=== PATIENT | female | born 1995 | race Caucasian/White ===

== ENCOUNTER 2025-05-27 05:38 | Inpatient (IN) | payer OTHER ==
[2025-05-27 06:08] VITALS: BMI 25.0
[2025-05-27] MEDS ORDERED: Methylergonovine 0.2 MG/ML VIAL IM PRN (06:26)
[2025-05-27] MEDS ORDERED: hydrALAZINE 20 MG/ML VIAL SLOW IVP PRN (06:26)
[2025-05-27] MEDS ORDERED: Lidocaine 1% (PF) 30 ML VIAL SC PRN (06:26)
[2025-05-27] MEDS ORDERED: Ondansetron PF 4 MG/2 ML Vial IVP PRN ×4 (06:26→22:00)
[2025-05-27] MEDS ORDERED: Tranexamic Acid 1,000 MG/10 ML VIAL IVP PRN (06:26)
[2025-05-27] MEDS ORDERED: Carboprost 250 MCG/ML AMP IM PRN (06:26)
[2025-05-27] MEDS ORDERED: Diphenoxylate HCl/Atropine Tablet PO PRN ×2 (06:26)
[2025-05-27] MEDS ORDERED: Oxytocin 30 units/NS 500 ML 500 ML IV SCH (06:30)
[2025-05-27 06:54] LABS: Hematocrit 37.9 % (34.9-44.5); Hemoglobin 12.8 g/dL (12.0-15.5); Mean Corpuscular Hemoglobin 30.8 pg (27.0-33.0); Mean Corpuscular Volume 91.3 fL (81.6-98.3); Platelet Count 294 10x3/uL (150-450); Red Blood Cell (RBC) Count 4.15 10x6/uL (3.90-5.03); White Blood Cell (WBC) Count 14.91 10x3/uL (3.5-10.5)
[2025-05-27] MEDS: fentaNYL/Ropivacaine Epidural 100 ML ONE (07:23)
[2025-05-27 07:40] LABS: Hep B Surf Ag - L&D Non-Reactive S/CO (NonReactive); Syphilis Antibody Index 0.07 S/CO (<1.00 Non-Reactive)
[2025-05-27] MEDS ORDERED: diphenhydrAMINE 50 MG/ML VIAL IVP PRN ×2 (07:46→09:07)
[2025-05-27] MEDS ORDERED: Acetaminophen 325 MG TAB PO PRN (07:46)
[2025-05-27] MEDS ORDERED: Communication Order-Pharmacy FS SCH ×2 (08:00→09:15)
[2025-05-27] MEDS ORDERED: fentaNYL 2 mcg/Ropivacaine 0.2% Epidural 100 ML CADD EPIDURAL SCH (08:00)
[2025-05-27] MEDS ORDERED: diphenhydrAMINE 50 MG/ML VIAL IM PRN (09:07)
[2025-05-27] MEDS ORDERED: diphenhydrAMINE 25 MG CAP PO PRN (09:07)
[2025-05-27] MEDS ORDERED: fentaNYL Citrate/PF 55 ML IV SCH (09:15)
[2025-05-27] MEDS ORDERED: Bupivacaine 0.25% HCL 30 ML VIAL ONE (13:00)
[2025-05-27] MEDS ORDERED: Bupivacaine HCl 0.5%/Epinephrine 1:200,000/PF 30 ml Vial ONE (13:00)
[2025-05-27] MEDS ORDERED: Lidocaine 2% MPF 10 ML AMP (For Epidural Use) ONE (13:00)
[2025-05-27] MEDS: Oxytocin 30 units/NS 500 ML 500 ML IV SCH (17:16)
[2025-05-27] MEDS: Ibuprofen 800 MG TAB PO PRN (19:27)
[2025-05-27] MEDS ORDERED: Bisacodyl 10 MG SUPP PR PRN (22:00)
[2025-05-27] MEDS ORDERED: Boostrix 0.5 ML (Tdap) VIAL (>/=7 yrs of age) IM SCH (22:00)
[2025-05-27] MEDS ORDERED: HYDROcodone/Acetaminophen 5/325 mg Tablet PO PRN ×2 (22:00)
[2025-05-27] MEDS: Benzocaine-Menthol 82.5 ML CAN TOP PRN (22:42)
[2025-05-28] MEDS: Ibuprofen 800 MG TAB PO SCH ×2 (04:02→20:59)
[2025-05-29 08:38] VITALS: BP 117/68; TEMP 98.2
== END 2025-05-29 13:30 | disposition home or self-care (01) | DRG 807 ==
LOC: CSHLD/OP 05:38 → CSHLD 06:08 → CSHPP 19:40
PROVIDERS: ADMIT Obstetrics & Gynecology; ATTEND Obstetrics & Gynecology
PROC: 10E0XZZ Delivery of Products of Conception, External Approach (ICD-10-PCS; principal; 2025-05-27)
PROC: 0HQ9XZZ Repair Perineum Skin, External Approach (ICD-10-PCS; 2025-05-27)
PROC: 3E033VJ Introduction of Other Hormone into Peripheral Vein, Percutaneous Approach (ICD-10-PCS; 2025-05-27)
PROC: 3E0234Z Introduction of Serum, Toxoid and Vaccine into Muscle, Percutaneous Approach (ICD-10-PCS; 2025-05-27)
DX: O70.0 First degree perineal laceration during delivery (principal); Z37.0 Single live birth; Z3A.39 39 weeks gestation of pregnancy; Z23 Encounter for immunization
CPT/HCPCS: 51702; 85027; 86780; 86850; 86900; 86901; 87340; 99285; J0665; J2590